=== PATIENT | male | born 1940 | race Caucasian/White ===

== ENCOUNTER → 2019-03-08 | Outpatient (CLI) | payer MEDICARE, OTHER, SELFPAY | PROVIDERS: Family Provider Family Medicine; Visit Provider Nurse Practitioner | DX: C34.11 Malignant neoplasm of upper lobe, right bronchus or lung (principal); C77.1 Secondary and unspecified malignant neoplasm of intrathoracic lymph nodes; Z79.52 Long term (current) use of systemic steroids; Z87.891 Personal history of nicotine dependence | CPT/HCPCS: 96523; 99214; J1642 ==

== ENCOUNTER 2019-04-04 10:01 | Outpatient (CLI) | payer MEDICARE, OTHER, SELFPAY ==
--- NOTE | 2019-04-04 10:49 | CTR_ITS ---
PROCEDURE INFORMATION: Exam: CT Chest With Contrast Exam date and time: 04/04/2019 10:52 AM Age: 78 years old Clinical indication: Condition or disease; Lung condition and disease; Cancer of the lung; Bilateral; Unspecified; Prior surgery; Surgery date: 6+ months; Surgery type: Port placement; Patient HX: Affected lung with primary tumor not specified; Additional info: Lung cancer follow up (jan 30) TECHNIQUE: Imaging protocol: Computed tomography of the chest with intravenous contrast. Total DLP: 579.2 mGy-cm Radiation optimization: All CT scans at this facility use at least one of these dose optimization techniques: automated exposure control; mA and/or kV adjustment per patient size (includes targeted exams where dose is matched to clinical indication); or iterative reconstruction. Contrast material: OMNI 300; Contrast volume: 95 ml; Contrast route: IV; COMPARISON: CT chest w con* [id number] 01/31/2019 12:15 PM FINDINGS: Lungs: There is interval progression of disease since the 01/2019 examination. Spiculated right lung mass now measures 8.4 cm in greatest axial dimension. There is mild dependent atelectasis in the lower lungs bilaterally. There are patchy and nodular densities in both lung bases which are overall more prominent than on prior study. A dominant 16 mm nodule in the left lower lobe, image 34 measures 11 mm on previous images. Pleural space: Unremarkable. No pneumothorax. No pleural effusion. Heart: Unremarkable. No cardiomegaly. No pericardial effusion. Pulmonary arteries: There are no abnormal filling defects within the pulmonary arterial system. The examination is negative for pulmonary thromboembolism. Aorta: The thoracic aorta is normal caliber. No aneurysm or dissection is seen. Lymph nodes: Mediastinal lymphadenopathy is unchanged. Bones/joints: There is increased loss of vertebral body height at the previously described T6 pathologic compression fracture. CT/CT chest w con* [id number] IMPRESSION: 1. Interval progression of disease, with enlarging right lung mass and increased prominence of patchy and nodular densities at both lung bases, as above. 2. Mediastinal lymphadenopathy unchanged. 3. Increased loss of vertebral body height at previously described T6 pathologic compression fracture. Radiation Dose CTDIVOL = (mGy): DLP = 579.2 (mGy-cm)
[2019-04-04 13:41] LABS: Blood Urea Nitrogen 5 mg/dL (8-23)
[2019-04-04] MEDS: iohexol 300 mg/mL 100 mL Btl IV (14:25)
== END 2019-04-04 10:02 | disposition home or self-care (01) ==
LOC: RAD 10:10
PROVIDERS: Family Provider Family Medicine; PCP Family Medicine; Visit Provider Internal Medicine Medical Oncology
DX: C34.11 Malignant neoplasm of upper lobe, right bronchus or lung (principal); C78.02 Secondary malignant neoplasm of left lung
CPT/HCPCS: 36415; 71260; 82565; 84520

== ENCOUNTER 2019-04-09 14:17 | Outpatient (CLI) | payer MEDICARE, OTHER, SELFPAY ==
[2019-04-09 15:34] LABS: Basophils # 0.1 10^3/uL (0.0-0.1); Basophils % 0.8 %; Eosinophils # 0.2 10^3/uL (0.0-0.8); Lymphocytes # 2.4 10^3/uL (0.8-4.8); Lymphocytes % 30.5 %; Mean Corpuscular HGB Conc 30.8 g/dL (30.0-36.0); Mean Corpuscular Hemoglobin 28.5 pg (28.0-34.0); Mean Corpuscular Volume 92.6 fL (80-94); Monocytes # 0.8 10^3/uL (0.2-0.9); Monocytes % 9.7 %; Neutrophils # 4.5 10^3/uL (1.8-7.7); Neutrophils % 56.6 %; Nucleated Red Blood Cells % 0 %; Platelet Count 363 10^3/cmm (130-400); Red Blood Count 4.21 10^6/uL (4.1-5.3); Red Cell Distribution Width 14.1 % (12.1-15.1); White Blood Count 7.9 10^3/uL (4.0-10.0)
[2019-04-09 15:36] LABS: Alanine Aminotransferase 9 U/L (0-41); Albumin Level 3.2 g/dL (3.5-5.2); Alkaline Phosphatase 93 IU/L (40-130); Anion Gap 16.1 (5-19); Aspartate Amino Transferase 14 U/L (0-40); Blood Urea Nitrogen 5 mg/dL (8-23); Calcium 9.7 mg/dL (8.5-10.5); Carbon Dioxide 29 mmol/L (22-29); Chloride 96 mmol/L (98-107); Globulin 4.2 g/dL (1.3-4.6); Glucose 115 mg/dL (74-106); Potassium 3.1 mmol/L (3.5-5.1); Sodium 138 mmol/L (136-145); Total Bilirubin 0.3 mg/dL (0.15-1.2); Total Protein 7.4 g/dL (6.6-8.7)
--- NOTE | 2019-04-09 23:39 | ONC FU_ITS ---
Dr. Omer Patient Follow-Up Note Patient: Caleb Henao Unit #: [id number]: 1940 Dicatated By: Mo Omer M.D.Date of Visit:Apr 09, 2019 Onc Med Follow-up/Prog Note Chief Complaint: Lung cancer. 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 He had initially presented with cough. Chest x-ray on 07/01/2015 showed a new right midlung mass. A follow-up CT of the chest on 07/11/2015 revealed 3.9 cm mass in the right upper lobe, centered in the minor fissure with right hilar and right mediastinal lymphadenopathy up to 2 cm. There was a 6 mm nonspecific nodule in the right lower lobe. There were no lesions in the liver. He was first seen here on 07/22/2015. PET/CT evaluation on 07/26/2015 showed hypermetabolic right upper lobe mass measuring 3.7 cm with additional malignant mediastinal adenopathy and suspicious right supraclavicular adenopathy. Multifocal hepatic metastases were noted. The case was further reviewed with radiologist, no anatomical correlate was found in the liver. Bronchoscopy showed no evidence of endobronchial lesion. Mediastinoscopy recovered 4R lymph node, which was negative for metastatic disease. He then underwent navigational bronchoscopy on 08/27/2015. Biopsy revealed squamous cell carcinoma. Repeat follow-up CT of the chest, abdomen, and pelvis showed stable lung neoplasm, with a stable small mediastinal and hilar lymphadenopathy. There was no supraclavicular lymphadenopathy, there were no lesions in the liver. His case was presented on the tumor board. Without definitive evidence of metastatic disease in the hilum or mediastinum, SBRT to the primary lesion was recommended, with a further follow-up with imaging in 3 months. SBRT planning was performed, but on that imaging the primary lung lesion was felt to be extending centrally. SBRT was felt to result in significant , potentially unacceptable toxicities. Concurrent chemotherapy and conventional radiation treatment was felt to be safer and more appropriate in this particular case. It was recommended that he undergo a trial of paclitaxel and carboplatin with RT. He was scheduled for his initial chemotherapy treatment on 09/22/2015. However, had a significant infusion reaction (despite standard steroid premedication) to the paclitaxel, and thus the treatment was stopped. He did proceed with radiation, and he then started chemotherapy on 09/29/2015 with weekly carboplatin in combination with Abraxane. He completed radiation to the right lung to 6,800 cGy on 11/06/2015. CT scan of the chest, abdomen, and pelvis performed on 12/24/2015 showed moderate decrease in size of the neoplasm in the right upper and right middle lobe measuring 2.6 x 1.6 x 1.8 cm. There was no metastatic disease to the liver or adrenal glands. Mediastinal and hilar lymphadenopathy appeared stable. An indeterminate right lower lobe pulmonary nodule and the nodule versus lymph nodes surrounding the right pulmonary vein were stable. Restaging CT scans on 06/18/2016 showed no evidence of disease progression in the chest, abdomen, or pelvis. Restaging CT scans of the chest, abdomen, and pelvis on 10/25/2016 showed significant increase in the size of the right pulmonary nodule measuring 3.2 x 2.4 cm compared to a maximum diameter 1.6 cm on the prior study from June. Additional focal irregular opacities in the periphery of the right lower lobe appeared stable. Mediastinal and hilar lymph nodes also appeared stable. There were no other areas of disease progression noted. Further staging with PET/CT on 10/30/2016 showed 2.4 cm malignancy in the right upper lobe with SUV 9.0. A 1.2 cm lower right paratracheal lymph node showed SUV 6.0, but that was felt to be most likely reactive. A new 9 mm opacity in the inferior lingula showed SUV 2.7. A 2.6 cm lesion in the hepatic segment IVb showed SUV 6.6 compared to 1.7 cm with SUV 4.7 on the previous study in 2016. A 2.2 cm lesion in hepatic segment 5 showed SUV 6.7 compared to 2.2 cm with SUV 4.3 on the prior study. The findings in the liver were felt to be consistent with progression of metastatic lesions. Given those findings, we opted to proceed with SBRT to the right upper lobe lung lesion. Treatment was completed on 11/19/2016 to a total radiation dose of 5000 cGy. He tolerated the treatment well. Follow-up chest CT on 12/14/2016 showed smaller right upper lobe mass, measuring 2.0 x 2.4 x 1.4 cm. Mediastinal and hilar lymph nodes appeared stable, and the liver appeared unremarkable. Restaging CT scans of the chest, abdomen, and pelvis on 03/15/2017 showed an interval slight increase in the central right upper lobe pulmonary mass measuring 1.8 x 3.0 x 2.5 cm. Subpleural opacities in the periphery of the right lower lobe appeared stable. There was a new 4 mm left lower lobe pulmonary nodule which was suspicious for metastasis. Mediastinal and hilar adenopathy again appeared stable and there was no evidence of metastatic involvement in the liver or adrenal glands. Given the minor changes on the CT, he continued on observation/expectant management. Repeat chest CT on 06/14/2017 showed increase in the right upper lobe anterior segmental lobulated centrally necrotic mass, measuring 3.2 x 3.7 cm compared to 2.5 x 3.0 cm, and interval confluence of previously noted inferior nodules. Right lower lobe posterior and lateral segmental interstitial and groundglass airspace opacities appeared similar. Bilateral severe centrilobular and paraseptal emphysematous changes were reidentified. The previous left lower lobe posterior segment subcentimeter nodule was no longer seen. There were no new pulmonary masses or nodules noted. PET/CT on 06/18/2017 showed progression of right upper lobe malignancy measuring 3.0 x 3.5 cm, SUV 16.9. Multiple mediastinal and bilateral hilar lymph nodes appeared unchanged in size and uptake compared to the previous study from October 2016. The previously reported hypermetabolic hepatic lesions showed normalization of uptake to hepatic background levels. At that point he continued on observation/expectant management. His repeat CT scans on 09/16/2017 showed further increase in the right central lung mass measuring 4.1 x 4.8 x 5.6 cm. It was noted to extend into both the right upper and right middle lobes. There were enlarged but stable hilar and mediastinal lymph nodes, the largest measuring 3.4 x 1.6 cm in the subcarinal area. There was no evidence of metastatic involvement in the liver or adrenal glands. With those findings, he then began second line therapy with atezolizumab. He has CT evidence of underlying COPD, and he also has degenerative arthritis. He has no other medical illnesses. He had smoked in the past, but quit 6 years ago. He also has had significant occupational exposure to dust from working in a [employer]. INTERIM HISTORY: He began cycle 1 of atezolizumab on 10/11/2017. He tolerated well, and he was then able to continue with cycle 2 on 11/01/2017 and with cycle 3 on 11/22/2017. Restaging CT scans of the chest, abdomen, and pelvis on 12/09/2017 showed further increase in the size of the right central lung mass to 4.8 x 8.1 x 6.3 cm. Also noted was increase in soft tissue adjacent to the central right lower lobe pulmonary artery measuring 3.9 x 1.4 cm. Remaining hilar and mediastinal lymph nodes appeared stable. There was no evidence of metastatic involvement in the liver or adrenal glands. He continued treatment with atezolizumab. Restaging CT scans on 02/24/2018 showed moderate decrease in the size of the central right lung mass measuring 3.5 x 3.8 x 4.6 cm. There was significant improvement in the mediastinal and hilar lymphadenopathy. There was no evidence of disease progression. He continued with cycle 7 of atezolizumab on 02/28/2018. His cycle 8 was delayed to 03/28/2018 due to a respiratory infection. He then continued treatment at 3-week intervals. He completed cycle 15 on 08/22/2018. At his followup visit on 09/12/2018 he had complained of increased shortness of breath and cough. Chest xray was suspicious for pneumonitis. His atezolizumab was put on hold, and he began empiric treatment with Levaquin and prednisone. A restaging PET/CT on 09/23/2018 reported increase in the size of the right upper lobe mass measuring 4.4 x 4.2 cm. The SUV was unchanged at 15. A new right apical subpleural nodule measuring 1.0 x 0.7 cm was FDG avid with SUV 4.0 and suspicious for metastasis. There was apparent progression of mediastinal node involvement. Also noted were bilateral lower lobe infiltrates demonstrating inflammatory FDG activity. I had seen him for a scheduled visit on 10/03/2018. At that point his breathing was getting worse again. 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 As of his follow-up visit on 10/16/2018 he was doing better clinically. His prednisone was put on a tapering dosage, and I opted to just continue observation/symptomatic management for the lung cancer. His restaging chest CT on 01/31/2019 showed right suprahilar neoplasm measuring 5.2 x 3.6 cm, stable compared to a CT pulmonary angiogram from 01/04/2019. A noncalcified pulmonary nodule at the left lung base measuring 12 mm also appeared stable. Additional nodular opacities in the lung bases were felt to be likely infectious or inflammatory. An enlarged right paratracheal lymph node appeared stable at 10 mm. A few prominent anterior mediastinal and AP window lymph nodes also appeared unchanged. A compression fracture involving the superior endplate of the T6 vertebral body was noted to have progressed. There was diffuse sclerosis of the T6 vertebral body, suspicious for pathologic compression. He continued symptomatic/supportive care, and he remained on prednisone at 10 mg twice daily. Repeat chest CT on 04/04/2019 showed significant enlargement of the spiculated right lung mass, consistent with disease progression. It measured 8.4 cm in greatest dimension. Also noted was increased prominence of patchy and nodular densities at both lung bases. Mediastinal lymphadenopathy appeared unchanged. There was increased loss of vertebral body height at the previously described T6 pathologic compression fracture. He is seen for a follow-up visit. He has continued to show decline in his activity tolerance. He is on oxygen continuously, but despite that he is short of breath with any exertion. He particularly has problems with his portable oxygen, which is demand-based, and he sometimes has to work hard to get the oxygen to flow. His appetite is poor, and he has lost weight, in the range of 15 pounds in the past 2 months. He has no fever or night sweats. Lately he has had more chest congestion and cough. He has not had chest pain or hemoptysis. He has no GI or complaints, and his swelling has improved. He does not have any joint or bone pain, and he has no focal neurologic symptoms. He does complain that his skin is very dry. Medications: Fish Oil 1 (1000 mg) Capsule Delayed Release Oral daily, Glucosamine HCl 1 (1000 mg) Tablet Oral daily, Lasix 1 Tablet (of 20 mg) Oral daily, Multivital 1 Tablet Oral daily Allergies: PCN Review of Systems: Constitutional - His energy is low. He is mainly sedentary. His appetite is not very good and his weight is down about 10 pounds. No fever, chills, hot flashes, or night sweats. ECOG score is 3, ENMT - He has sinus congestion/drainage. No mouth sores. No sore throat or difficulty swallowing, Hematologic/Lymphatic - He bruises easily, Respiratory - He has shortness of breath with activity. He wears continuous oxygen. He has a productive cough. No pleuritic pain or hemoptysis, Cardiovascular - No angina pain. No palpitations, Gastrointestinal - No nausea or vomiting. No heartburn or acid reflux. No diarrhea or constipation. No blood in the stool or black stools, Genitourinary (M) - No dysuria or hematuria. No urinary frequency. No urgency or incontinence, Musculoskeletal - No joint or bone pain, Integumentary - No skin complications, Neurologic - No headache or dizziness. No numbness/paresthesias or other focal neurologic symptoms, Psychiatric - No anxiety or depression. No insomnia. Vital Signs: Performed on Apr 09, 2019 15:04 Height - 66.00 in Weight - 162.0 lbs (LOW) BSA - 1.83 sq.m BMI - 26.15 Temperature - 99.4 F (HIGH) Pulse - 107 /min (HIGH) Respiration - 26 /min BP - 132/63 mm(hg) O2 Sat - 89 % (LOW) Pain - 0 Physical Examination: Constitutional - He appears generally weak. He is short of breath with effort, Eyes - Sclerae nonicteric. Conjunctivae clear, ENMT - No lesions noted in the oral cavity, Hematologic/Lymphatic - No cervical, clavicular, or axillary adenopathy, Respiratory - Lungs show diminished air movement bilaterally. There are scattered rales present. There is no wheezing, Cardiovascular - Heart rhythm is regular. There is a mild tachycardia. There is a II/ systolic murmur. There is no gallop or rub noted, Abdomen - Moderately distended. Liver and spleen are not enlarged. There is no abdominal mass or ascites noted and there is no inguinal adenopathy, Extremities - No edema, Integumentary - His skin is generally dry and flaky, Neurologic - No focal neurologic deficits noted. Lab/Imaging: Test performed on Apr 09, 2019 14:40 Sodium 138 mmol/L Potassium 3.1 mmol/L Chloride 96 mmol/L CO2 29 mmol/L Anion Gap 16.1 BUN 5 mg/dL Creatinine 0.9 mg/dL Cr Clearance (Est) 72.5800 mL/min Glucose 115 mg/dL Calcium 9.7 mg/dL Protein, Total 7.4 g/dL Albumin 3.2 g/dL Globulin 4.2 g/dL Bilirubin, Total 0.3 mg/dL ALT (SGPT) 9 U/L AST (SGOT) 14 U/L Alkaline Phosphatase 93 IU/L WBC 7.9 10 3/uL RBC 4.21 10 6/uL HGB 12.0 g/dL HCT 39.0 % MCV 92.6 fL MCH 28.5 pg MCHC 30.8 g/dL RDW 14.1 % Platelet Count 363 10 3/cmm MPV 10.0 fL Neutrophils 4.5 10 3/uL Lymphocytes 2.4 10 3/uL Monocytes 0.8 10 3/uL Eosinophils 0.2 10 3/uL Basophils 0.1 10 3/uL Neutrophil % 56.6 % Lymphocyte % 30.5 % Monocyte % 9.7 % Eosinophil % 2.0 % Basophils % 0.8 % Impression: 1. Patient with squamous cell carcinoma involving upper lobe of the right lung, diagnosed by bronchoscopy with right upper lobe bronchial biopsy on 08/27/2015. Cervical mediastinoscopy with biopsy of station 4R lymph node showed no tumor. By clinical evaluation, his disease was stage IB (T2a, N0, M0). He was not a surgical candidate, and the location of the tumor was not amenable to SBRT. 2. He underwent chemoradiation utilizing carboplatin/Abraxane for chemotherapy sensitization, as he experienced a hypersensitivity reaction to his initial dose of paclitaxel. His chemotherapy was stopped after the second weekly dose due to further hypersensitivity reaction and other toxicities. 3. He completed radiation on 11/06/2015 to a total dose of 6800 cGy. There was evidence of significant response by follow-up CT scan on 12/24/2015. 4. There is CT evidence of underlying COPD. 5. He also has degenerative arthritis. By followup CT scan he had a good response to the chemoradiation. His subsequent follow-up CT scans had remained stable until October 2016 when there was a significant increase in the right upper lobe lung mass. The mediastinal adenopathy, though, appeared stable. That study showed no evidence of metastatic involvement in the liver or adrenal glands. A subsequent PET/CT was suspicious for progression of 2 metastatic lesions in the liver, but the significance of that finding was uncertain, as those lesions were not evident on the diagnostic CT. There was no evidence of other metastatic disease. As such, he then underwent SBRT to the right upper lobe lung lesion. He completed treatment on 11/19/2016 to a total dose of 5000 cGy. He tolerated the treatment well. Restaging chest CT on 12/14/2016 showed some decrease in the right upper lobe lung mass with no obvious disease progression. He was then followed on observation/expectant management. His subsequent surveillance CT scans have shown definite increase in the right upper lobe lung mass, consistent with disease progression. There was associated hilar and mediastinal lymph node involvement, but there was no evidence for any other metastatic disease. With those findings, he then began second line treatment with atezolizumab, cycle 1 beginning 10/11/2017. His restaging CT scans after 3 cycles had shown further enlargement of the right lung mass, but he appeared stable clinically, and I did have him continue treatment. His restaging CT scans on 02/24/2018 showed a moderate decrease in the size of the central right lung mass and significant improvement in the mediastinal and hilar lymphadenopathy, consistent with treatment response. He continued with cycle 7 of atezolizumab on 02/28/2018. His cycle 8 atezolizumab was delayed 1 week due to a respiratory infection. He then continued treatment at 3-week intervals. He completed cycle 15 on 08/22/2018. At his followup visit on 09/12/2018 his azetolizumab was put on hold due to suspected pneumonitis. He began empiric treatment with Levaquin and prednisone. His restaging PET/CT on 09/23/2018 reported increase in the right upper lobe lung mass and progression of mediastinal lymph node involvement. There were inflammatory appearing infiltrates in both lower lobes. His symptoms initially had improved with the Levaquin and prednisone, but his shortness of breath worsened after the prednisone dosage was tapered to 10 mg daily. I had seen him for a follow-up visit on 10/03/2018. His clinical and CT findings appeared to be most consistent with treatment related pneumonitis. There appeared to be just slight increase in his lung mass. He has had significant symptomatic improvement with higher dose steroid therapy. At his follow-up visit on 10/16/2018 his prednisone was put on a tapering dose schedule, and at that point I opted to just continue with observation/symptomatic management for the lung cancer. During follow-up he has continued to have fairly marginal performance status, though previously there had been no significant progression of the lung cancer. However, the current CT does show significant enlargement of the right lung mass, now measuring 8.4 cm in greatest dimension compared to 5.2 x 3.6 cm on the January 2019 study. Along with that, he has been getting more short of breath, and his oxygen saturation levels at times go down into the low 80s or even 70s. He has been showing further decline in his performance status. Plan: As the likelihood of benefit with any further chemotherapy will be very low, they prefer to just continue with symptomatic/supportive care. His prognosis appears very poor now, but they decline hospice. He will be given empiric antibiotic coverage with Levaquin for 7 days. The prednisone dosage will remain the same. I will have him increase his home oxygen to 3 L/min continuously, but she is advised to go ahead and increase it to 4 or even 5 L/min at times when he is more severely short of breath. He will be scheduled for a follow-up visit in 1 month. Signed By: Mo Omer M.D. <<Signature on File>>
== END 2019-04-09 14:18 | disposition home or self-care (01) ==
LOC: ONCMED 14:20
PROVIDERS: Family Provider Family Medicine; PCP Family Medicine; Visit Provider Internal Medicine Medical Oncology
DX: Z51.5 Encounter for palliative care (principal); C34.11 Malignant neoplasm of upper lobe, right bronchus or lung; C78.7 Secondary malignant neoplasm of liver and intrahepatic bile duct; C78.02 Secondary malignant neoplasm of left lung; C77.1 Secondary and unspecified malignant neoplasm of intrathoracic lymph nodes; J44.9 Chronic obstructive pulmonary disease, unspecified; M19.90 Unspecified osteoarthritis, unspecified site; Z79.52 Long term (current) use of systemic steroids; Z99.81 Dependence on supplemental oxygen; Z92.21 Personal history of antineoplastic chemotherapy; Z92.3 Personal history of irradiation; Z87.891 Personal history of nicotine dependence
CPT/HCPCS: 36591; 80053; 85025; 99214

== ENCOUNTER 2019-05-10 09:00 | Outpatient (CLI) | payer MEDICARE, OTHER, SELFPAY | END 2019-05-10 09:01 | disposition home or self-care (01) | LOC: ONCMED 09:02 | PROVIDERS: Family Provider Family Medicine; PCP Family Medicine; Visit Provider Internal Medicine Medical Oncology | DX: Z45.2 Encounter for adjustment and management of vascular access device (principal) | CPT/HCPCS: 96523 ==

== ENCOUNTER 2019-05-16 08:28 | Outpatient (CLI) | payer MEDICARE, OTHER, SELFPAY ==
--- NOTE | 2019-05-16 13:56 | ONC FU_ITS ---
Dr. Omer Patient Follow-Up Note Patient: Caleb Henao Unit #: [id number]: 1940 Dicatated By: Mo Omer M.D.Date of Visit:May 16, 2019 Onc Med Follow-up/Prog Note Chief Complaint: Lung cancer. 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 He had initially presented with cough. Chest x-ray on 07/01/2015 showed a new right midlung mass. A follow-up CT of the chest on 07/11/2015 revealed 3.9 cm mass in the right upper lobe, centered in the minor fissure with right hilar and right mediastinal lymphadenopathy up to 2 cm. There was a 6 mm nonspecific nodule in the right lower lobe. There were no lesions in the liver. He was first seen here on 07/22/2015. PET/CT evaluation on 07/26/2015 showed hypermetabolic right upper lobe mass measuring 3.7 cm with additional malignant mediastinal adenopathy and suspicious right supraclavicular adenopathy. Multifocal hepatic metastases were noted. The case was further reviewed with radiologist, no anatomical correlate was found in the liver. Bronchoscopy showed no evidence of endobronchial lesion. Mediastinoscopy recovered 4R lymph node, which was negative for metastatic disease. He then underwent navigational bronchoscopy on 08/27/2015. Biopsy revealed squamous cell carcinoma. Repeat follow-up CT of the chest, abdomen, and pelvis showed stable lung neoplasm, with a stable small mediastinal and hilar lymphadenopathy. There was no supraclavicular lymphadenopathy, there were no lesions in the liver. His case was presented on the tumor board. Without definitive evidence of metastatic disease in the hilum or mediastinum, SBRT to the primary lesion was recommended, with a further follow-up with imaging in 3 months. SBRT planning was performed, but on that imaging the primary lung lesion was felt to be extending centrally. SBRT was felt to result in significant , potentially unacceptable toxicities. Concurrent chemotherapy and conventional radiation treatment was felt to be safer and more appropriate in this particular case. It was recommended that he undergo a trial of paclitaxel and carboplatin with RT. He was scheduled for his initial chemotherapy treatment on 09/22/2015. However, had a significant infusion reaction (despite standard steroid premedication) to the paclitaxel, and thus the treatment was stopped. He did proceed with radiation, and he then started chemotherapy on 09/29/2015 with weekly carboplatin in combination with Abraxane. He completed radiation to the right lung to 6,800 cGy on 11/06/2015. CT scan of the chest, abdomen, and pelvis performed on 12/24/2015 showed moderate decrease in size of the neoplasm in the right upper and right middle lobe measuring 2.6 x 1.6 x 1.8 cm. There was no metastatic disease to the liver or adrenal glands. Mediastinal and hilar lymphadenopathy appeared stable. An indeterminate right lower lobe pulmonary nodule and the nodule versus lymph nodes surrounding the right pulmonary vein were stable. Restaging CT scans on 06/18/2016 showed no evidence of disease progression in the chest, abdomen, or pelvis. Restaging CT scans of the chest, abdomen, and pelvis on 10/25/2016 showed significant increase in the size of the right pulmonary nodule measuring 3.2 x 2.4 cm compared to a maximum diameter 1.6 cm on the prior study from June. Additional focal irregular opacities in the periphery of the right lower lobe appeared stable. Mediastinal and hilar lymph nodes also appeared stable. There were no other areas of disease progression noted. Further staging with PET/CT on 10/30/2016 showed 2.4 cm malignancy in the right upper lobe with SUV 9.0. A 1.2 cm lower right paratracheal lymph node showed SUV 6.0, but that was felt to be most likely reactive. A new 9 mm opacity in the inferior lingula showed SUV 2.7. A 2.6 cm lesion in the hepatic segment IVb showed SUV 6.6 compared to 1.7 cm with SUV 4.7 on the previous study in 2016. A 2.2 cm lesion in hepatic segment 5 showed SUV 6.7 compared to 2.2 cm with SUV 4.3 on the prior study. The findings in the liver were felt to be consistent with progression of metastatic lesions. Given those findings, we opted to proceed with SBRT to the right upper lobe lung lesion. Treatment was completed on 11/19/2016 to a total radiation dose of 5000 cGy. He tolerated the treatment well. Follow-up chest CT on 12/14/2016 showed smaller right upper lobe mass, measuring 2.0 x 2.4 x 1.4 cm. Mediastinal and hilar lymph nodes appeared stable, and the liver appeared unremarkable. Restaging CT scans of the chest, abdomen, and pelvis on 03/15/2017 showed an interval slight increase in the central right upper lobe pulmonary mass measuring 1.8 x 3.0 x 2.5 cm. Subpleural opacities in the periphery of the right lower lobe appeared stable. There was a new 4 mm left lower lobe pulmonary nodule which was suspicious for metastasis. Mediastinal and hilar adenopathy again appeared stable and there was no evidence of metastatic involvement in the liver or adrenal glands. Given the minor changes on the CT, he continued on observation/expectant management. Repeat chest CT on 06/14/2017 showed increase in the right upper lobe anterior segmental lobulated centrally necrotic mass, measuring 3.2 x 3.7 cm compared to 2.5 x 3.0 cm, and interval confluence of previously noted inferior nodules. Right lower lobe posterior and lateral segmental interstitial and groundglass airspace opacities appeared similar. Bilateral severe centrilobular and paraseptal emphysematous changes were reidentified. The previous left lower lobe posterior segment subcentimeter nodule was no longer seen. There were no new pulmonary masses or nodules noted. PET/CT on 06/18/2017 showed progression of right upper lobe malignancy measuring 3.0 x 3.5 cm, SUV 16.9. Multiple mediastinal and bilateral hilar lymph nodes appeared unchanged in size and uptake compared to the previous study from October 2016. The previously reported hypermetabolic hepatic lesions showed normalization of uptake to hepatic background levels. At that point he continued on observation/expectant management. His repeat CT scans on 09/16/2017 showed further increase in the right central lung mass measuring 4.1 x 4.8 x 5.6 cm. It was noted to extend into both the right upper and right middle lobes. There were enlarged but stable hilar and mediastinal lymph nodes, the largest measuring 3.4 x 1.6 cm in the subcarinal area. There was no evidence of metastatic involvement in the liver or adrenal glands. With those findings, he then began second line therapy with atezolizumab. He has CT evidence of underlying COPD, and he also has degenerative arthritis. He has no other medical illnesses. He had smoked in the past, but quit 6 years ago. He also has had significant occupational exposure to dust from working in a [employer]. INTERIM HISTORY: He began cycle 1 of atezolizumab on 10/11/2017. He tolerated well, and he was then able to continue with cycle 2 on 11/01/2017 and with cycle 3 on 11/22/2017. Restaging CT scans of the chest, abdomen, and pelvis on 12/09/2017 showed further increase in the size of the right central lung mass to 4.8 x 8.1 x 6.3 cm. Also noted was increase in soft tissue adjacent to the central right lower lobe pulmonary artery measuring 3.9 x 1.4 cm. Remaining hilar and mediastinal lymph nodes appeared stable. There was no evidence of metastatic involvement in the liver or adrenal glands. He continued treatment with atezolizumab. Restaging CT scans on 02/24/2018 showed moderate decrease in the size of the central right lung mass measuring 3.5 x 3.8 x 4.6 cm. There was significant improvement in the mediastinal and hilar lymphadenopathy. There was no evidence of disease progression. He continued with cycle 7 of atezolizumab on 02/28/2018. His cycle 8 was delayed to 03/28/2018 due to a respiratory infection. He then continued treatment at 3-week intervals. He completed cycle 15 on 08/22/2018. At his followup visit on 09/12/2018 he had complained of increased shortness of breath and cough. Chest xray was suspicious for pneumonitis. His atezolizumab was put on hold, and he began empiric treatment with Levaquin and prednisone. A restaging PET/CT on 09/23/2018 reported increase in the size of the right upper lobe mass measuring 4.4 x 4.2 cm. The SUV was unchanged at 15. A new right apical subpleural nodule measuring 1.0 x 0.7 cm was FDG avid with SUV 4.0 and suspicious for metastasis. There was apparent progression of mediastinal node involvement. Also noted were bilateral lower lobe infiltrates demonstrating inflammatory FDG activity. I had seen him for a scheduled visit on 10/03/2018. At that point his breathing was getting worse again. 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 As of his follow-up visit on 10/16/2018 he was doing better clinically. His prednisone was put on a tapering dosage, and I opted to just continue observation/symptomatic management for the lung cancer. His restaging chest CT on 01/31/2019 showed right suprahilar neoplasm measuring 5.2 x 3.6 cm, stable compared to a CT pulmonary angiogram from 01/04/2019. A noncalcified pulmonary nodule at the left lung base measuring 12 mm also appeared stable. Additional nodular opacities in the lung bases were felt to be likely infectious or inflammatory. An enlarged right paratracheal lymph node appeared stable at 10 mm. A few prominent anterior mediastinal and AP window lymph nodes also appeared unchanged. A compression fracture involving the superior endplate of the T6 vertebral body was noted to have progressed. There was diffuse sclerosis of the T6 vertebral body, suspicious for pathologic compression. He continued symptomatic/supportive care, and he remained on prednisone at 10 mg twice daily. Repeat chest CT on 04/04/2019 showed significant enlargement of the spiculated right lung mass, consistent with disease progression. It measured 8.4 cm in greatest dimension. Also noted was increased prominence of patchy and nodular densities at both lung bases. Mediastinal lymphadenopathy appeared unchanged. There was increased loss of vertebral body height at the previously described T6 pathologic compression fracture. I had seen him for a follow-up visit on 04/09/2019. As he was not tolerating immunotherapy and the likelihood of response to further chemotherapy would be very low, he opted to just continue with symptomatic/supportive care. He is seen for a follow-up visit. He continues to have very limited activity. His ECOG score is 3. He has shortness of breath despite being on continuous oxygen at 3 L/min. He has cough and his says he has copious amounts of frothy white sputum with it. He does not have chest pain or hemoptysis. He has not had fever. His breathing does tend to be worse at night, and he has been having some episodes where he cannot get air. He does have significant anxiety with those episodes. He still has good appetite. He has no GI/ complaints other than some loose stools. He has no significant joint or bone pain. He does not complain of headache. He recently had an episode in which his left arm and hand went limp for about 20 minutes. Medications: Fish Oil 1 (1000 mg) Capsule Delayed Release Oral daily, Glucosamine HCl 1 (1000 mg) Tablet Oral daily, Ipratropium-Albuterol 1 Dose(s) (of 20-100 mcg/act) Aerosol, solution Inhalation four times a day PRN, Lasix 1 Tablet (of 20 mg) Oral daily, Multivital 1 Tablet Oral daily Allergies: PCN Review of Systems: Constitutional - His energy is low. He is mainly sedentary at home. His appetite is getting better and his weight is stable. No fever, chills, hot flashes, or night sweats. ECOG score is 3, ENMT - No sinus congestion/drainage. No mouth sores. No sore throat or difficulty swallowing, Hematologic/Lymphatic - No abnormal bruising or bleeding, Respiratory - He has episodes of shortness of breath despite wearing continuous oxygen. He does have to increase his oxygen at night. He has been using his inhaler more frequently. He has a cough that produces white, frothy phlegm. No pleuritic pain or hemoptysis, Cardiovascular - No angina pain. No palpitations, Gastrointestinal - No nausea or vomiting. No heartburn or acid reflux. His bowels are loose. No blood in the stool or black stools, Genitourinary (M) - No dysuria or hematuria. No urinary frequency. No urgency or incontinence, Musculoskeletal - No joint or bone pain, Integumentary - He has some redness and irritation on his cheeks from his breathing treatment mask. His hands are dry and cracking, Neurologic - No headache. He feels dizzy at times, if he moves too quickly. He recently had an episode of numbness and loss of control in his left hand, that lasted about 20 minutes, Psychiatric - He has anxiety in association with episodes of difficulty breathing. He has difficulty sleeping due to shortness of breath. Vital Signs: Performed on May 16, 2019 08:55 Height - 66.00 in Weight - 156.0 lbs (LOW) BSA - 1.80 sq.m BMI - 25.18 Temperature - 99.1 F (HIGH) Pulse - 113 /min (HIGH) Respiration - 26 /min BP - 127/65 mm(hg) O2 Sat - 89 % (LOW) Pain - 0 Physical Examination: Constitutional - He appears generally weak and chronically ill. He is short of breath with effort, Eyes - Sclerae nonicteric. Conjunctivae clear, ENMT - No lesions noted in the oral cavity, Hematologic/Lymphatic - No cervical, clavicular, or axillary adenopathy, Respiratory - Lungs show diminished air movement bilaterally, worse on the right. There is no wheezing, Cardiovascular - Heart rhythm is regular. There is a mild tachycardia. There is a II/ systolic murmur. There is no gallop or rub noted, Abdomen - Mildly distended. Liver and spleen are not enlarged. There is no abdominal mass or ascites noted and there is no inguinal adenopathy, Extremities - Mild edema, Integumentary - His skin is generally dry and flaky, Neurologic - No focal neurologic deficits noted. Lab/Imaging: Test performed on Apr 09, 2019 14:40 Sodium 138 mmol/L Potassium 3.1 mmol/L Chloride 96 mmol/L CO2 29 mmol/L Anion Gap 16.1 BUN 5 mg/dL Creatinine 0.9 mg/dL Cr Clearance (Est) 72.5800 mL/min Glucose 115 mg/dL Calcium 9.7 mg/dL Protein, Total 7.4 g/dL Albumin 3.2 g/dL Globulin 4.2 g/dL Bilirubin, Total 0.3 mg/dL ALT (SGPT) 9 U/L AST (SGOT) 14 U/L Alkaline Phosphatase 93 IU/L WBC 7.9 10 3/uL RBC 4.21 10 6/uL HGB 12.0 g/dL HCT 39.0 % MCV 92.6 fL MCH 28.5 pg MCHC 30.8 g/dL RDW 14.1 % Platelet Count 363 10 3/cmm MPV 10.0 fL Neutrophils 4.5 10 3/uL Lymphocytes 2.4 10 3/uL Monocytes 0.8 10 3/uL Eosinophils 0.2 10 3/uL Basophils 0.1 10 3/uL Neutrophil % 56.6 % Lymphocyte % 30.5 % Monocyte % 9.7 % Eosinophil % 2.0 % Basophils % 0.8 % Impression: 1. Patient with squamous cell carcinoma involving upper lobe of the right lung, diagnosed by bronchoscopy with right upper lobe bronchial biopsy on 08/27/2015. Cervical mediastinoscopy with biopsy of station 4R lymph node showed no tumor. By clinical evaluation, his disease was stage IB (T2a, N0, M0). He was not a surgical candidate, and the location of the tumor was not amenable to SBRT. 2. He underwent chemoradiation utilizing carboplatin/Abraxane for chemotherapy sensitization, as he experienced a hypersensitivity reaction to his initial dose of paclitaxel. His chemotherapy was stopped after the second weekly dose due to further hypersensitivity reaction and other toxicities. 3. He completed radiation on 11/06/2015 to a total dose of 6800 cGy. There was evidence of significant response by follow-up CT scan on 12/24/2015. 4. There is CT evidence of underlying COPD. 5. He also has degenerative arthritis. By followup CT scan he had a good response to the chemoradiation. His subsequent follow-up CT scans had remained stable until October 2016 when there was a significant increase in the right upper lobe lung mass. The mediastinal adenopathy, though, appeared stable. That study showed no evidence of metastatic involvement in the liver or adrenal glands. A subsequent PET/CT was suspicious for progression of 2 metastatic lesions in the liver, but the significance of that finding was uncertain, as those lesions were not evident on the diagnostic CT. There was no evidence of other metastatic disease. As such, he then underwent SBRT to the right upper lobe lung lesion. He completed treatment on 11/19/2016 to a total dose of 5000 cGy. He tolerated the treatment well. Restaging chest CT on 12/14/2016 showed some decrease in the right upper lobe lung mass with no obvious disease progression. He was then followed on observation/expectant management. His subsequent surveillance CT scans have shown definite increase in the right upper lobe lung mass, consistent with disease progression. There was associated hilar and mediastinal lymph node involvement, but there was no evidence for any other metastatic disease. With those findings, he then began second line treatment with atezolizumab, cycle 1 beginning 10/11/2017. His restaging CT scans after 3 cycles had shown further enlargement of the right lung mass, but he appeared stable clinically, and I did have him continue treatment. His restaging CT scans on 02/24/2018 showed a moderate decrease in the size of the central right lung mass and significant improvement in the mediastinal and hilar lymphadenopathy, consistent with treatment response. He continued with cycle 7 of atezolizumab on 02/28/2018. His cycle 8 atezolizumab was delayed 1 week due to a respiratory infection. He then continued treatment at 3-week intervals. He completed cycle 15 on 08/22/2018. At his followup visit on 09/12/2018 his azetolizumab was put on hold due to suspected pneumonitis. He began empiric treatment with Levaquin and prednisone. His restaging PET/CT on 09/23/2018 reported increase in the right upper lobe lung mass and progression of mediastinal lymph node involvement. There were inflammatory appearing infiltrates in both lower lobes. His symptoms initially had improved with the Levaquin and prednisone, but his shortness of breath worsened after the prednisone dosage was tapered to 10 mg daily. I had seen him for a follow-up visit on 10/03/2018. His clinical and CT findings appeared to be most consistent with treatment related pneumonitis. There appeared to be just slight increase in his lung mass. He has had significant symptomatic improvement with higher dose steroid therapy. At his follow-up visit on 10/16/2018 his prednisone was put on a tapering dose schedule, and at that point I opted to just continue with observation/symptomatic management for the lung cancer. During follow-up he continued to have fairly marginal performance status, though previously there had been no significant progression of the lung cancer. However, his repeat chest CT on 04/04/2019 showed significant enlargement of the right lung mass, measuring 8.4 cm in greatest dimension compared to 5.2 x 3.6 cm on the January 2019 study. Along with that he had been getting more short of breath, and his oxygen saturation levels at times had gone down into the low 80s or even 70s. He also was showing further decline in his performance status. As he had been tolerating the immunotherapy poorly and the likelihood of benefit with further chemotherapy would be very low, he opted to just continue with symptomatic/supportive care measures. Since then he has continued to have shortness of breath, even on continuous oxygen. He also continues to have significant cough, though without chest pain or hemoptysis. His performance status is very marginal. He has more difficulty breathing at night, and he has some episodes of being severely short of breath and anxious. His overall condition and prognosis are poor. Plan: He continues on symptomatic/supportive care. For now the oxygen will remain at 3 L/min, but he is aware that he can increase that when needed. He will continue with his current nebulizers and inhalers. He will be given a prescription for prednisone to take a tapering dose when he needs it. He also will be given a prescription for lorazepam for the anxiety, and he will take furosemide as needed for swelling. We discussed issues related to an advanced directive, and he has indicated in his 's presence that he does not want to have ventilator/CPR, etc. He is agreeable now to hospice referral. I will see him again in 1 month, or sooner as needed. Signed By: Mo Omer M.D. <<Signature on File>>
== END 2019-05-16 08:29 | disposition home or self-care (01) ==
LOC: ONCMED 08:31
PROVIDERS: Family Provider Family Medicine; PCP Family Medicine; Visit Provider Internal Medicine Medical Oncology
DX: Z51.5 Encounter for palliative care (principal); C34.11 Malignant neoplasm of upper lobe, right bronchus or lung; C78.7 Secondary malignant neoplasm of liver and intrahepatic bile duct; C77.1 Secondary and unspecified malignant neoplasm of intrathoracic lymph nodes; J44.9 Chronic obstructive pulmonary disease, unspecified; M19.90 Unspecified osteoarthritis, unspecified site; F41.9 Anxiety disorder, unspecified; Z99.81 Dependence on supplemental oxygen; Z79.51 Long term (current) use of inhaled steroids; Z92.3 Personal history of irradiation; Z92.21 Personal history of antineoplastic chemotherapy; Z87.891 Personal history of nicotine dependence
CPT/HCPCS: 99214

== ENCOUNTER 2019-10-19 08:46 | Outpatient (CLI) | payer MEDICARE, OTHER, SELFPAY ==
--- NOTE | 2019-10-19 16:47 | ONC FU_ITS ---
Dr. Omer Patient Follow-Up Note Patient: Caleb Henao Unit #: [id number]: [id number] Dicatated By: Mo Omer M.D.Date of Visit:Oct 19, 2019 Onc Med Follow-up/Prog Note Chief Complaint: Lung cancer. 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 He had initially presented with cough. Chest x-ray on 07/01/2015 showed a new right midlung mass. A follow-up CT of the chest on 07/11/2015 revealed 3.9 cm mass in the right upper lobe, centered in the minor fissure with right hilar and right mediastinal lymphadenopathy up to 2 cm. There was a 6 mm nonspecific nodule in the right lower lobe. There were no lesions in the liver. He was first seen here on 07/22/2015. PET/CT evaluation on 07/26/2015 showed hypermetabolic right upper lobe mass measuring 3.7 cm with additional malignant mediastinal adenopathy and suspicious right supraclavicular adenopathy. Multifocal hepatic metastases were noted. The case was further reviewed with radiologist, no anatomical correlate was found in the liver. Bronchoscopy showed no evidence of endobronchial lesion. Mediastinoscopy recovered 4R lymph node, which was negative for metastatic disease. He then underwent navigational bronchoscopy on 08/27/2015. Biopsy revealed squamous cell carcinoma. Repeat follow-up CT of the chest, abdomen, and pelvis showed stable lung neoplasm, with a stable small mediastinal and hilar lymphadenopathy. There was no supraclavicular lymphadenopathy, there were no lesions in the liver. His case was presented on the tumor board. Without definitive evidence of metastatic disease in the hilum or mediastinum, SBRT to the primary lesion was recommended, with a further follow-up with imaging in 3 months. SBRT planning was performed, but on that imaging the primary lung lesion was felt to be extending centrally. SBRT was felt to result in significant , potentially unacceptable toxicities. Concurrent chemotherapy and conventional radiation treatment was felt to be safer and more appropriate in this particular case. It was recommended that he undergo a trial of paclitaxel and carboplatin with RT. He was scheduled for his initial chemotherapy treatment on 09/22/2015. However, had a significant infusion reaction (despite standard steroid premedication) to the paclitaxel, and thus the treatment was stopped. He did proceed with radiation, and he then started chemotherapy on 09/29/2015 with weekly carboplatin in combination with Abraxane. He completed radiation to the right lung to 6,800 cGy on 11/06/2015. CT scan of the chest, abdomen, and pelvis performed on 12/24/2015 showed moderate decrease in size of the neoplasm in the right upper and right middle lobe measuring 2.6 x 1.6 x 1.8 cm. There was no metastatic disease to the liver or adrenal glands. Mediastinal and hilar lymphadenopathy appeared stable. An indeterminate right lower lobe pulmonary nodule and the nodule versus lymph nodes surrounding the right pulmonary vein were stable. Restaging CT scans on 06/18/2016 showed no evidence of disease progression in the chest, abdomen, or pelvis. Restaging CT scans of the chest, abdomen, and pelvis on 10/25/2016 showed significant increase in the size of the right pulmonary nodule measuring 3.2 x 2.4 cm compared to a maximum diameter 1.6 cm on the prior study from June. Additional focal irregular opacities in the periphery of the right lower lobe appeared stable. Mediastinal and hilar lymph nodes also appeared stable. There were no other areas of disease progression noted. Further staging with PET/CT on 10/30/2016 showed 2.4 cm malignancy in the right upper lobe with SUV 9.0. A 1.2 cm lower right paratracheal lymph node showed SUV 6.0, but that was felt to be most likely reactive. A new 9 mm opacity in the inferior lingula showed SUV 2.7. A 2.6 cm lesion in the hepatic segment IVb showed SUV 6.6 compared to 1.7 cm with SUV 4.7 on the previous study in 2016. A 2.2 cm lesion in hepatic segment 5 showed SUV 6.7 compared to 2.2 cm with SUV 4.3 on the prior study. The findings in the liver were felt to be consistent with progression of metastatic lesions. Given those findings, we opted to proceed with SBRT to the right upper lobe lung lesion. Treatment was completed on 11/19/2016 to a total radiation dose of 5000 cGy. He tolerated the treatment well. Follow-up chest CT on 12/14/2016 showed smaller right upper lobe mass, measuring 2.0 x 2.4 x 1.4 cm. Mediastinal and hilar lymph nodes appeared stable, and the liver appeared unremarkable. Restaging CT scans of the chest, abdomen, and pelvis on 03/15/2017 showed an interval slight increase in the central right upper lobe pulmonary mass measuring 1.8 x 3.0 x 2.5 cm. Subpleural opacities in the periphery of the right lower lobe appeared stable. There was a new 4 mm left lower lobe pulmonary nodule which was suspicious for metastasis. Mediastinal and hilar adenopathy again appeared stable and there was no evidence of metastatic involvement in the liver or adrenal glands. Given the minor changes on the CT, he continued on observation/expectant management. Repeat chest CT on 06/14/2017 showed increase in the right upper lobe anterior segmental lobulated centrally necrotic mass, measuring 3.2 x 3.7 cm compared to 2.5 x 3.0 cm, and interval confluence of previously noted inferior nodules. Right lower lobe posterior and lateral segmental interstitial and groundglass airspace opacities appeared similar. Bilateral severe centrilobular and paraseptal emphysematous changes were reidentified. The previous left lower lobe posterior segment subcentimeter nodule was no longer seen. There were no new pulmonary masses or nodules noted. PET/CT on 06/18/2017 showed progression of right upper lobe malignancy measuring 3.0 x 3.5 cm, SUV 16.9. Multiple mediastinal and bilateral hilar lymph nodes appeared unchanged in size and uptake compared to the previous study from October 2016. The previously reported hypermetabolic hepatic lesions showed normalization of uptake to hepatic background levels. At that point he continued on observation/expectant management. His repeat CT scans on 09/16/2017 showed further increase in the right central lung mass measuring 4.1 x 4.8 x 5.6 cm. It was noted to extend into both the right upper and right middle lobes. There were enlarged but stable hilar and mediastinal lymph nodes, the largest measuring 3.4 x 1.6 cm in the subcarinal area. There was no evidence of metastatic involvement in the liver or adrenal glands. With those findings, he then began second line therapy with atezolizumab. He has CT evidence of underlying COPD, and he also has degenerative arthritis. He has no other medical illnesses. He had smoked in the past, but quit 6 years ago. He also has had significant occupational exposure to dust from working in a [employer]. INTERIM HISTORY: He began cycle 1 of atezolizumab on 10/11/2017. He tolerated well, and he was then able to continue with cycle 2 on 11/01/2017 and with cycle 3 on 11/22/2017. Restaging CT scans of the chest, abdomen, and pelvis on 12/09/2017 showed further increase in the size of the right central lung mass to 4.8 x 8.1 x 6.3 cm. Also noted was increase in soft tissue adjacent to the central right lower lobe pulmonary artery measuring 3.9 x 1.4 cm. Remaining hilar and mediastinal lymph nodes appeared stable. There was no evidence of metastatic involvement in the liver or adrenal glands. He continued treatment with atezolizumab. Restaging CT scans on 02/24/2018 showed moderate decrease in the size of the central right lung mass measuring 3.5 x 3.8 x 4.6 cm. There was significant improvement in the mediastinal and hilar lymphadenopathy. There was no evidence of disease progression. He continued with cycle 7 of atezolizumab on 02/28/2018. His cycle 8 was delayed to 03/28/2018 due to a respiratory infection. He then continued treatment at 3-week intervals. He completed cycle 15 on 08/22/2018. At his followup visit on 09/12/2018 he had complained of increased shortness of breath and cough. Chest xray was suspicious for pneumonitis. His atezolizumab was put on hold, and he began empiric treatment with Levaquin and prednisone. A restaging PET/CT on 09/23/2018 reported increase in the size of the right upper lobe mass measuring 4.4 x 4.2 cm. The SUV was unchanged at 15. A new right apical subpleural nodule measuring 1.0 x 0.7 cm was FDG avid with SUV 4.0 and suspicious for metastasis. There was apparent progression of mediastinal node involvement. Also noted were bilateral lower lobe infiltrates demonstrating inflammatory FDG activity. I had seen him for a scheduled visit on 10/03/2018. At that point his breathing was getting worse again. 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 As of his follow-up visit on 10/16/2018 he was doing better clinically. His prednisone was put on a tapering dosage, and I opted to just continue observation/symptomatic management for the lung cancer. His restaging chest CT on 01/31/2019 showed right suprahilar neoplasm measuring 5.2 x 3.6 cm, stable compared to a CT pulmonary angiogram from 01/04/2019. A noncalcified pulmonary nodule at the left lung base measuring 12 mm also appeared stable. Additional nodular opacities in the lung bases were felt to be likely infectious or inflammatory. An enlarged right paratracheal lymph node appeared stable at 10 mm. A few prominent anterior mediastinal and AP window lymph nodes also appeared unchanged. A compression fracture involving the superior endplate of the T6 vertebral body was noted to have progressed. There was diffuse sclerosis of the T6 vertebral body, suspicious for pathologic compression. He continued symptomatic/supportive care, and he remained on prednisone at 10 mg twice daily. Repeat chest CT on 04/04/2019 showed significant enlargement of the spiculated right lung mass, consistent with disease progression. It measured 8.4 cm in greatest dimension. Also noted was increased prominence of patchy and nodular densities at both lung bases. Mediastinal lymphadenopathy appeared unchanged. There was increased loss of vertebral body height at the previously described T6 pathologic compression fracture. I had seen him for a follow-up visit on 04/09/2019. As he was not tolerating immunotherapy and the likelihood of response to further chemotherapy would be very low, he opted to just continue with symptomatic/supportive care. Following his visit with me in May 2019, he did agree to hospice referral. He is seen for a home visit. He has been showing gradual decline activity tolerance, to the point that he now ambulates only short distances, mainly just to the porch. His ECOG score is 3. His indicates that his appetite has been off lately. He has not had fever or night sweats. He occasionally gets chilled. He has sinus drainage. He has productive cough, mainly after his breathing treatments, which she is now taking 4 times a day. He says there is no color to his phlegm. He is short of breath with any activity. He is on continuous oxygen. He is not having chest pain or hemoptysis. Recently he has developed some constipation. He has frequent urination, and he does tend to get swelling in his feet. He has no significant joint or bone pain. He has no focal neurologic symptoms. Medications: Fish Oil 1 (1000 mg) Capsule Delayed Release Oral daily, Glucosamine HCl 1 (1000 mg) Tablet Oral daily, Ipratropium-Albuterol 1 Dose(s) (of 20-100 mcg/act) Aerosol, solution Inhalation four times a day PRN, Lasix 1 Tablet (of 20 mg) Oral daily, Multivital 1 Tablet Oral daily Allergies: PCN Review of Systems: Constitutional - His activity is very limited. He is now able to ambulate only short distances, mainly from his recliner to the porch. His appetite lately has been off. He has not had fever or night sweats. He occasionally has chills. ECOG score is 3, ENMT - He has sinus drainage. No mouth sores. No sore throat or difficulty swallowing, Hematologic/Lymphatic - He has bruising. No bleeding, Respiratory - He has shortness of breath with any activity. He is on continuous oxygen. He has productive cough, mainly after his breathing treatments, which she is taking 4 times a day. No pleuritic pain or hemoptysis, Cardiovascular - No angina pain. No palpitations, Gastrointestinal - No nausea or vomiting. No heartburn or acid reflux. Recently he has had constipation. No blood in the stool or black stools, Genitourinary (M) - No dysuria or hematuria. He has urinary frequency. No urgency or incontinence, Musculoskeletal - No joint or bone pain, Integumentary - No skin rash, Neurologic - No headache or dizziness. No numbness or tingling. No other focal neurologic symptoms, Psychiatric - No anxiety or depression. His says he sleeps half the day, and is then sometimes up at night. Vital Signs: Performed on Oct 19, 2019 10:52 Height - 66.00 in Temperature - 97.9 F (LOW) Pulse - 85 /min Respiration - 16 /min BP - 105/57 mm(hg) O2 Sat - 97 % Physical Examination: Constitutional - He appears weaker generally. He is short of breath with effort, Eyes - Sclerae nonicteric. Conjunctivae clear, ENMT - No lesions noted in the oral cavity, Hematologic/Lymphatic - No cervical, clavicular, or axillary adenopathy, Respiratory - Lungs show diminished air movement on the left and only minimal air movement on the right. There is no wheezing, Cardiovascular - Heart rhythm is regular. There is a II/ systolic murmur. There is no gallop or rub noted, Abdomen - Mildly distended but soft. Liver and spleen are not enlarged. There is no abdominal mass or ascites noted and there is no inguinal adenopathy, Extremities - Mild edema, Neurologic - No focal neurologic deficits noted. Impression: 1. Patient with squamous cell carcinoma involving upper lobe of the right lung, diagnosed by bronchoscopy with right upper lobe bronchial biopsy on 08/27/2015. Cervical mediastinoscopy with biopsy of station 4R lymph node showed no tumor. By clinical evaluation, his disease was stage IB (T2a, N0, M0). He was not a surgical candidate, and the location of the tumor was not amenable to SBRT. 2. He underwent chemoradiation utilizing carboplatin/Abraxane for chemotherapy sensitization, as he experienced a hypersensitivity reaction to his initial dose of paclitaxel. His chemotherapy was stopped after the second weekly dose due to further hypersensitivity reaction and other toxicities. 3. He completed radiation on 11/06/2015 to a total dose of 6800 cGy. There was evidence of significant response by follow-up CT scan on 12/24/2015. 4. There is CT evidence of underlying COPD. 5. He also has degenerative arthritis. By followup CT scan he had a good response to the chemoradiation. His subsequent follow-up CT scans had remained stable until October 2016 when there was a significant increase in the right upper lobe lung mass. The mediastinal adenopathy, though, appeared stable. That study showed no evidence of metastatic involvement in the liver or adrenal glands. A subsequent PET/CT was suspicious for progression of 2 metastatic lesions in the liver, but the significance of that finding was uncertain, as those lesions were not evident on the diagnostic CT. There was no evidence of other metastatic disease. As such, he then underwent SBRT to the right upper lobe lung lesion. He completed treatment on 11/19/2016 to a total dose of 5000 cGy. He tolerated the treatment well. Restaging chest CT on 12/14/2016 showed some decrease in the right upper lobe lung mass with no obvious disease progression. He was then followed on observation/expectant management. His subsequent surveillance CT scans have shown definite increase in the right upper lobe lung mass, consistent with disease progression. There was associated hilar and mediastinal lymph node involvement, but there was no evidence for any other metastatic disease. With those findings, he then began second line treatment with atezolizumab, cycle 1 beginning 10/11/2017. His restaging CT scans after 3 cycles had shown further enlargement of the right lung mass, but he appeared stable clinically, and I did have him continue treatment. His restaging CT scans on 02/24/2018 showed a moderate decrease in the size of the central right lung mass and significant improvement in the mediastinal and hilar lymphadenopathy, consistent with treatment response. He continued with cycle 7 of atezolizumab on 02/28/2018. His cycle 8 atezolizumab was delayed 1 week due to a respiratory infection. He then continued treatment at 3-week intervals. He completed cycle 15 on 08/22/2018. At his followup visit on 09/12/2018 his azetolizumab was put on hold due to suspected pneumonitis. He began empiric treatment with Levaquin and prednisone. His restaging PET/CT on 09/23/2018 reported increase in the right upper lobe lung mass and progression of mediastinal lymph node involvement. There were inflammatory appearing infiltrates in both lower lobes. His symptoms initially had improved with the Levaquin and prednisone, but his shortness of breath worsened after the prednisone dosage was tapered to 10 mg daily. I had seen him for a follow-up visit on 10/03/2018. His clinical and CT findings appeared to be most consistent with treatment related pneumonitis. There appeared to be just slight increase in his lung mass. He has had significant symptomatic improvement with higher dose steroid therapy. At his follow-up visit on 10/16/2018 his prednisone was put on a tapering dose schedule, and at that point I opted to just continue with observation/symptomatic management for the lung cancer. During follow-up he continued to have fairly marginal performance status, though previously there had been no significant progression of the lung cancer. However, his repeat chest CT on 04/04/2019 showed significant enlargement of the right lung mass, measuring 8.4 cm in greatest dimension compared to 5.2 x 3.6 cm on the January 2019 study. Along with that he had been getting more short of breath, and his oxygen saturation levels at times had gone down into the low 80s or even 70s. He also was showing further decline in his performance status. As he had been tolerating the immunotherapy poorly and the likelihood of benefit with further chemotherapy would be very low, he opted to just continue with symptomatic/supportive care measures. During follow-up he had worsening shortness of breath and declining performance status. As of his visit with me in May 2019 he did agree to hospice referral. He has since then continued his symptomatic/supportive care, with further though gradual decline in his performance status. Plan: He continues on symptomatic/supportive care. I will have him try increasing prednisone to 10 mg twice daily, at least on a temporary basis. If that is not helpful, I may then try Megace or Marinol for his appetite. He is going to increase senna/docusate to 2 tablets twice a day, and he also will add MiraLAX as needed for the constipation. His medications otherwise remain the same. His prognosis does appear to be poor, as there has been noticeable decline in his general condition since his last visit. Signed By: Mo Omer M.D. <<Signature on File>>
== END 2019-10-19 08:47 | disposition home or self-care (01) ==
LOC: ONCMED 08:49
PROVIDERS: PCP Family Medicine; Visit Provider Internal Medicine Medical Oncology
DX: Z51.5 Encounter for palliative care (principal); C34.11 Malignant neoplasm of upper lobe, right bronchus or lung; C77.1 Secondary and unspecified malignant neoplasm of intrathoracic lymph nodes; K59.00 Constipation, unspecified; J44.9 Chronic obstructive pulmonary disease, unspecified; M19.90 Unspecified osteoarthritis, unspecified site; Z92.22 Personal history of monoclonal drug therapy; Z79.52 Long term (current) use of systemic steroids; Z99.81 Dependence on supplemental oxygen